=== PATIENT | male | born 1990 | race Two or more races ===

== ENCOUNTER 2017-01-17 17:25 | Emergency (ER) | payer MEDICAID, OTHER ==
[~2017-01-17] VITALS: Ht 172.7 cm; Wt 68.0 kg
[2017-01-17 18:49] VITALS: BP 156/101
[2017-01-17] MEDS ORDERED: TETANUS-DIPTH-ACEL PERTUSSIS 0.5ML SYRG IM ONE (19:45)
[2017-01-17] MEDS ORDERED: BACITRACIN TOP OINT 1 UD PKG TOP ONE ×2 (19:58→20:30)
[2017-01-17] MEDS ORDERED: LIDOCAINE 1% HCL (LOCAL ANESTH.) INJ 20ML MDV ONE (19:59)
== END 2017-01-17 20:46 | disposition home or self-care (01) ==
LOC: ER 17:32
DX: S61.212A Laceration without foreign body of right middle finger without damage to nail, initial encounter (principal); S61.214A Laceration without foreign body of right ring finger without damage to nail, initial encounter; W45.8XXA Other foreign body or object entering through skin, initial encounter; Y93.89 Activity, other specified; Y92.89 Other specified places as the place of occurrence of the external cause; Y99.8 Other external cause status
CPT/HCPCS: 12004; 90471; 90715; 99283; J2001